=== PATIENT | female | born 1995 | race African-American/Black ===

== ENCOUNTER 2019-06-22 17:32 | Emergency (ER) | payer OTHER ==
[~2019-06-22] VITALS: Ht 157.5 cm; Wt 68.9 kg
[2019-06-22 18:18] VITALS: BP 104/61
[2019-06-22] MEDS ORDERED: guaiFENesin/CODEINE 100mg/10mg 5 ML LIQUID PO STA (18:29)
[2019-06-22] MEDS ORDERED: ONDANSETRON ODT 4 MG TAB.RAPDIS. PO ONE (18:30)
[2019-06-22] MEDS ORDERED: BENZ100C PO (18:48)
[2019-06-22] MEDS ORDERED: PRED50TA PO (18:48)
[2019-06-22] MEDS ORDERED: PROM25TA10 PO (18:48)
--- NOTE | 2019-06-22 18:48 | PHYS DOC ---
Adult General Chief Complaint Chief Complaint: SORE THROAT HPI HPI Patient is a 24 year old female with no significant medical history who presents to the ED today complaining of cough productive in nature, sore throat, chest pain, symptoms began a week ago. Denies any exacerbating or relieving factors. Unable to describe the chest pain. Also complaining of generalized abdominal pain. Denies any chance she is . She states her whole body hurts. She is also complaining of bilateral ear pain. She rates most of her pain is 8 out of 10. Denies being on any control. Denies any personal family history of DVTs or PEs. Denies any recent hospitalization or long air or car ca r rides. Review of Systems Review of Systems Constitutional: Denies fever or chills [] Eyes: Denies change in visual acuity, redness, or eye pain [] HENT: Reports sore throat, bilateral ear pain, denies nasal congestion Respiratory: Reports cough, denies shortness of breath [] Cardiovascular: Reports chest pain GI: Reports generalized abdominal pain, vomiting, denies bloody stools or diarrhea [] : Denies dysuria or hematuria [] Musculoskeletal: Denies back pain or joint pain [] Integument: Denies rash or skin lesions [] Neurologic: Denies headache, focal weakness or sensory changes [] All other systems were reviewed and found to be within normal limits, except as documented in this note. Current Medications Current Medications Current Medications Medications (Trade) Dose Ordered Sig/Mariano Start Time Stop Time Status Last Admin Dose Admin Guaifenesin/ Codeine Phosphate (Robitussin Ac) 5 ml 1X STAT 06/22/19 18:29 06/22/19 18:30 UNV Ondansetron HCl (Zofran Odt) 4 mg 1X ONCE 06/22/19 18:30 06/22/19 18:31 UNV Physical Exam Physical Exam Constitutional: Well developed, well nourished, no acute distress, non-toxic appearance. [] HENT: Normocephalic, atraumatic, bilateral external ears normal, oropharynx moist, no oral exudates, nose normal. Bilateral TM are mildly injected. Eyes: PERRLA, EOMI, conjunctiva normal, no discharge. [] Neck: Normal range of motion, no tenderness, supple, no stridor. [] Cardiovascular:Heart rate regular rhythm, no murmur [] Lungs & Thorax: Bilateral breath sounds clear to auscultation [] Abdomen: Bowel sounds normal, soft, no tenderness, no masses, no pulsatile masses. [] Skin: Warm, dry, no erythema, no rash. [] Back: No tenderness, no CVA tenderness. [] Extremities: No tenderness, no cyanosis, no clubbing, ROM intact, no edema. [] Neurologic: Alert and oriented X 3, normal motor function, normal sensory function, no focal deficits noted. [] Psychologic: Affect normal, judgement normal, mood normal. [] EKG EKG [] Radiology/Procedures Radiology/Procedures [] Course & Med Decision Making Course & Med Decision Making Pertinent Labs and Imaging studies reviewed. (See chart for details) This is a 24-year-old female patient presenting to the ED today with acute pharyngitis, cough, body aches, chest pain, otitis media, abdominal pain. Discharged on amoxicillin, promethazine, prednisone, Delsym, follow-up with PCP in one week. Dragon Disclaimer Dragon Disclaimer This electronic medical record was generated, in whole or in part, using a voice recognition dictation system. Departure Departure Impression: Primary Impression: Cough Additional Impressions: Acute pharyngitis Chest pain Abdominal pain Vomiting Disposition: 01 HOME, SELF-CARE Condition: STABLE Referrals: NO PCP (PCP) follow up with your doctor in one week Patient Instructions: Abdominal Pain (Nonspecific), Otitis Media, Adult, Viral Pharyngitis Additional Instructions: You were evaluated in the emergency room for multiple complaints. We put you on medications, take them as prescribed. Ensure you complete your antibiotics. Follow-up with your doctor in 1-2 weeks. Scripts Prednisone (PREDNISONE) 50 Mg Tablet 1 TAB PO DAILY, #5 TAB Prov: MUTUNGA,SANDRA MEAT STOCK CLERK 06/22/19 Benzonatate (TESSALON PERLE) 100 Mg Capsule 1 CAP PO TID, #30 CAP Prov: MUTUNGA,SANDRA MEAT STOCK CLERK 06/22/19 Promethazine Hcl (PROMETHAZINE HCL) 25 Mg Tablet 1 TAB PO PRN Q6HRS, #20 TAB Prov: MUTUNGA,SANDRA MEAT STOCK CLERK 06/22/19 Problem Qualifiers Additional Impressions: Acute pharyngitis Pharyngitis/tonsillitis etiology: unspecified etiology Qualified Codes: J02.9 - Acute pharyngitis, unspecified Chest pain Chest pain type: unspecified Qualified Codes: R07.9 - Chest pain, unspecified Abdominal pain Abdominal location: generalized Qualified Codes: R10.84 - Generalized abdominal pain Vomiting Vomiting type: unspecified Vomiting Intractability: non-intractable Nausea presence: without nausea Qualified Codes: R11.11 - Vomiting without nausea SANDRA AVILES APRN Jun 22, 2019 18:48
== END 2019-06-22 19:00 | disposition home or self-care (01) ==
LOC: ER 17:32
DX: J02.9 Acute pharyngitis, unspecified (principal); R10.84 Generalized abdominal pain; R11.11 Vomiting without nausea; R07.89 Other chest pain; H92.03 Otalgia, bilateral
CPT/HCPCS: 99283; Q0162

== ENCOUNTER 2019-06-30 22:31 | Emergency (ER) | payer OTHER ==
[~2019-06-30] VITALS: Ht 165.1 cm; Wt 68.9 kg
[~2019-06-30 22:31] MED LIST: BENZ100C PO; PRED50TA PO; PROM25TA10 PO
[2019-06-30] MEDS ORDERED: IV NORMAL SALINE 1000ML BAG 1,000 ML IV ONE (23:15)
[2019-06-30 23:19] LABS: BASO % 1 % (0-3); EOS # 0.1 x10^3/uL (0.0-0.7); EOS % 2 % (0-3); HEMATOCRIT 39.8 % (36.0-47.0); HEMOGLOBIN 13.3 g/dL (12.0-15.5); LYMPH # 2.3 x10^3/uL (1.0-4.8); LYMPH % 49 % (24-48); MEAN CORPUSCULAR HEMOGLOBIN 29 pg (25-35); MEAN CORPUSCULAR HGB CONC 33 g/dL (31-37); MEAN CORPUSCULAR VOLUME 86 fL (79-100); MONO # 0.3 x10^3/uL (0.0-1.1); MONO % 7 % (0-9); NEUT % 42 % (31-73); PLATELET COUNT 214 x10^3/uL (140-400); RED BLOOD COUNT 4.65 x10^6/uL (3.50-5.40); RED CELL DISTRIBUTION WIDTH 13.6 % (11.5-14.5); WHITE BLOOD COUNT 4.7 x10^3/uL (4.0-11.0)
[2019-06-30] MEDS ORDERED: ONDANSETRON PF 4 MG/2 ML VIAL. IV ONE (23:30)
[2019-06-30] MEDS ORDERED: diphenhydrAMINE 50 MG/ML VIAL IVP ONE (23:30)
[2019-06-30] MEDS ORDERED: KETOROLAC 15 MG/ML VIAL. IV ONE (23:30)
[2019-06-30] MEDS ORDERED: DEXAMETHASONE SOD PHOS 20 MG/5 ML VIAL. IV ONE (23:30)
[2019-06-30 23:37] LABS: CALCIUM 9.1 mg/dL (8.5-10.1); CREATININE 0.9 mg/dL (0.6-1.0); GFR 93.9; POTASSIUM 3.4 mmol/L (3.5-5.1)
[2019-06-30 23:42] LABS: ALBUMIN 3.9 g/dL (3.4-5.0); ALBUMIN/GLOBULIN RATIO 1.1 (1.0-1.7); MAGNESIUM 1.9 mg/dL (1.8-2.4); TOTAL BILIRUBIN 0.3 mg/dL (0.2-1.0); TOTAL PROTEIN 7.4 g/dL (6.4-8.2)
[2019-06-30 23:45] LABS: CREATINE KINASE 97 U/L (26-192)
--- NOTE | 2019-07-01 00:02 | RAD ---
CT brain without contrast. HISTORY: Headache, altered mental status CT scan of brain was done without contrast. There is no intracranial hemorrhage or subdural hematoma. Ventricles are normal in size. There is no mass or shift of the midline. Sinuses are clear. IMPRESSION: 1. No intracranial hemorrhage or acute finding noted. Electronically signed by: John Owens MD (06/30/2019 11:59 PM) [facility]
[2019-07-01] MEDS ORDERED: BUTALB/APAP/CAFEIN 50/325/40MG TABLET. PO ONE (01:00)
--- NOTE | 2019-07-01 01:43 | RAD ---
Study: PORTABLE CHEST 1V Indication: Dyspnea Comparison: None Findings: Unremarkable cardiovascular mediastinal silhouette and hilar structures. No lobar consolidation, pleural effusion or pneumothorax. The osseous structures and visualized upper abdomen are without acute abnormality. Impression: Unremarkable radiographic appearance of the chest. Electronically signed by: BENEDICT LINK MD (07/01/2019 1:40 AM) [facility]
[2019-07-01] MEDS ORDERED: DIPH25CA58 PO (03:24)
[2019-07-01] MEDS ORDERED: BUTA1TAB23 PO (03:24)
[2019-07-01] MEDS ORDERED: PRED20TA PO (03:24)
--- NOTE | 2019-07-01 03:24 | PHYS DOC ---
Past Medical History Past Medical History: No Pertinent History, Asthma Past Surgical History: Tonsillectomy Alcohol Use: Rarely Drug Use: None Adult General Chief Complaint Chief Complaint: ALTERED MENTAL STATUS HPI HPI Patient is a 24 year old [f__sex] who presents with [] Review of Systems Review of Systems Constitutional: Denies fever or chills [] Eyes: Denies change in visual acuity, redness, or eye pain [] HENT: Denies nasal congestion or sore throat [] Respiratory: Denies cough or shortness of breath [] Cardiovascular: No additional information not addressed in HPI [] GI: Denies abdominal pain, nausea, vomiting, bloody stools or diarrhea [] : Denies dysuria or hematuria [] Musculoskeletal: Denies back pain or joint pain [] Integument: Denies rash or skin lesions [] Neurologic: Denies headache, focal weakness or sensory changes [] Endocrine: Denies polyuria or polydipsia [] All other systems were reviewed and found to be within normal limits, except as documented in this note. Current Medications Current Medications Current Medications Medications (Trade) Dose Ordered Sig/Mariano Start Time Stop Time Status Last Admin Dose Admin Acetaminophen/ Butalbital/ Caffeine (Fioricet) 1 tab 1X ONCE 07/01/19 01:00 07/01/19 01:01 DC 07/01/19 02:56 1 TAB Dexamethasone Sodium Phosphate (Decadron) 10 mg 1X ONCE 06/30/19 23:30 06/30/19 23:31 DC 06/30/19 23:33 10 MG Diphenhydramine HCl (Benadryl) 50 mg 1X ONCE 06/30/19 23:30 06/30/19 23:31 DC 06/30/19 23:33 50 MG Ketorolac Tromethamine (Toradol 15mg Vial) 15 mg 1X ONCE 06/30/19 23:30 06/30/19 23:31 DC 06/30/19 23:33 15 MG Ondansetron HCl (Zofran) 4 mg 1X ONCE 06/30/19 23:30 06/30/19 23:31 DC 06/30/19 23:33 4 MG Sodium Chloride 1,000 ml @ 1,000 mls/hr 1X ONCE 06/30/19 23:15 07/01/19 00:14 DC 06/30/19 23:42 1,000 MLS/HR Allergies Allergies Allergies Coded Allergies Type Severity Reaction Last Updated Verified No Known Drug Allergies 06/22/19 No Physical Exam Physical Exam Constitutional: Well developed, well nourished, no acute distress, non-toxic appearance. [] HENT: Normocephalic, atraumatic, bilateral external ears normal, oropharynx mo ist, no oral exudates, nose normal. [] Eyes: PERRLA, EOMI, conjunctiva normal, no discharge. [] Neck: Normal range of motion, no tenderness, supple, no stridor. [] Cardiovascular:Heart rate regular rhythm, no murmur [] Lungs & Thorax: Bilateral breath sounds clear to auscultation [] Abdomen: Bowel sounds normal, soft, no tenderness, no masses, no pulsatile masses. [] Skin: Warm, dry, no erythema, no rash. [] Back: No tenderness, no CVA tenderness. [] Extremities: No tenderness, no cyanosis, no clubbing, ROM intact, no edema. [] Neurologic: Alert and oriented X 3, normal motor function, normal sensory function, no focal deficits noted. [] Psychologic: Affect normal, judgement normal, mood normal. [] Current Patient Data Vital Signs Vital Signs Date Time Temp Pulse Resp B/P (MAP) Pulse Ox O2 Delivery O2 Flow Rate FiO2 07/01/19 03:29 99 06/30/19 23:41 74 16 06/30/19 22:35 98.4 146/76 (99) Room Air 98.4 Lab Values Laboratory Tests Test 06/30/19 22:45 White Blood Count 4.7 x10^3/uL (4.0-11.0) Red Blood Count 4.65 x10^6/uL (3.50-5.40) Hemoglobin 13.3 g/dL (12.0-15.5) Hematocrit 39.8 % (36.0-47.0) Mean Corpuscular Volume 86 fL (79-100) Mean Corpuscular Hemoglobin 29 pg (25-35) Mean Corpuscular Hemoglobin Concent 33 g/dL (31-37) Red Cell Distribution Width 13.6 % (11.5-14.5) Platelet Count 214 x10^3/uL (140-400) Neutrophils (%) (Auto) 42 % (31-73) Lymphocytes (%) (Auto) 49 % (24-48) H Monocytes (%) (Auto) 7 % (0-9) Eosinophils (%) (Auto) 2 % (0-3) Basophils (%) (Auto) 1 % (0-3) Neutrophils # (Auto) 2.0 x10^3/uL (1.8-7.7) Lymphocytes # (Auto) 2.3 x10^3/uL (1.0-4.8) Monocytes # (Auto) 0.3 x10^3/uL (0.0-1.1) Eosinophils # (Auto) 0.1 x10^3/uL (0.0-0.7) Basophils # (Auto) 0.0 x10^3/uL (0.0-0.2) Sodium Level 143 mmol/L (136-145) Potassium Level 3.4 mmol/L (3.5-5.1) L Chloride Level 104 mmol/L (98-107) Carbon Dioxide Level 28 mmol/L (21-32) Anion Gap 11 (6-14) Blood Urea Nitrogen 8 mg/dL (7-20) Creatinine 0.9 mg/dL (0.6-1.0) Estimated GFR (Cockcroft-Gault) 93.9 BUN/Creatinine Ratio 9 (6-20) Glucose Level 84 mg/dL (70-99) Calcium Level 9.1 mg/dL (8.5-10.1) Magnesium Level 1.9 mg/dL (1.8-2.4) Total Bilirubin 0.3 mg/dL (0.2-1.0) Aspartate Amino Transferase (AST) 8 U/L (15-37) L Alanine Aminotransferase (ALT) 15 U/L (14-59) Alkaline Phosphatase 56 U/L (46-116) Creatine Kinase 97 U/L (26-192) Creatine Kinase MB (Mass) < 0.5 ng/mL (0.0-3.6) Creatine Kinase MB Relative Index % (0-4) Troponin I Quantitative < 0.017 ng/mL (0.000-0.055) Total Protein 7.4 g/dL (6.4-8.2) Albumin 3.9 g/dL (3.4-5.0) Albumin/Globulin Ratio 1.1 (1.0-1.7) Serum Test, Qualitative Negative (NEG) Ethyl Alcohol Level < 10 mg/dL (0-10) Laboratory Tests 06/30/19 22:45 Laboratory Tests 06/30/19 22:45 EKG EKG @2318 NSR at 67bpm, NO ST elevation Radiology/Procedures Radiology/Procedures [] Course & Med Decision Making Course & Med Decision Making Pertinent Labs and Imaging studies reviewed. (See chart for details) [] Dragon Disclaimer Dragon Disclaimer This electronic medical record was generated, in whole or in part, using a voice recognition dictation system. Departure Departure Impression: Primary Impression: Headache Disposition: HOME, SELF-CARE Condition: STABLE Referrals: NO PCP (PCP) YONY VOGEL MD Patient Instructions: Headache, FAQs Scripts Diphenhydramine Hcl (BENADRYL) 25 Mg Capsule 1 CAP PO Q6HRS PRN for SWELLING, #20 CAP Prov: CRISTY VENCES DO 07/01/19 Prednisone (PREDNISONE) 20 Mg Tablet 2 TAB PO DAILY, #8 TAB Prov: CRISTY VENCES DO 07/01/19 Butalb/Acetaminophen/Caffeine (TASIFZ-IHBEOJAP-ELHU 50-325-40) 1 Each Tablet 1 EACH PO Q6HRS PRN for HEADACHE, #10 TAB Prov: CRISTY VENCES DO 07/01/19 Problem Qualifiers Primary Impression: Headache Headache type: unspecified Headache chronicity pattern: acute headache Intractability: not intractable Qualified Codes: R51 - Headache CRISTY VENCES DO Jul 01, 2019 03:24
[2019-07-01 03:29] VITALS: BP 115/74
[2019-07-01 03:30] LABS: PREG TEST PT QUAL NEGATIVE (NEG)
--- NOTE | 2019-07-01 07:41 | EKG ---
[facility] [address] [place] [address] Test Date: 2019-06-30 Test Time: 23:18:44 Pat Name: SAMSON OCASIO Department: Room: Gender: F Retail Security Professional: : 1995 Requested By: CRISTY VENCES Order Number: [id number] Reading MD: Measurements Intervals [place] Rate: 67 P: 0 MD: 122 QRS: 49 QRSD: 78 T: 51 QT: 394 QTc: 419 Interpretive Statements SINUS RHYTHM NON SPECIFIC ST-T ABNORMALITY (ELEVATION) OTHERWISE NORMAL ECG No previous ECG available for comparison
== END 2019-07-01 04:15 | disposition home or self-care (01) ==
LOC: ER 22:31
DX: R51 Headache (principal); R41.82 Altered mental status, unspecified; R06.00 Dyspnea, unspecified; J45.909 Unspecified asthma, uncomplicated
CPT/HCPCS: 36415; 70450; 71045; 80053; 82553; 83735; 84484; 84703; 85025; 93005; 96361; 96374; 96375; 99285; G0480; J1100; J1200; J1885; J2405; J7030

== ENCOUNTER 2019-09-21 18:19 | Emergency (ER) | payer MEDICAID, OTHER ==
[~2019-09-21] VITALS: Ht 157.5 cm; Wt 62.1 kg
[~2019-09-21 18:19] MED LIST changes: +BUTA1TAB23 PO; +DIPH25CA58 PO; +PRED20TA PO
[2019-09-21] MEDS ORDERED: IV NORMAL SALINE 1000ML BAG 1,000 ML IV SCH (18:45)
[2019-09-21 18:54] LABS: BILIRUBIN,URINE NEGATIVE (NEG); CLARITY,URINE CLEAR; COLOR,URINE YELLOW; NITRITE,URINE NEGATIVE (NEG); PROTEIN,URINE NEGATIVE (NEG-TRACE)
--- NOTE | 2019-09-21 18:55 | PHYS DOC ---
Past Medical History Past Medical History: No Pertinent History, Asthma Past Surgical History: Tonsillectomy Alcohol Use: Rarely Drug Use: None Adult General Chief Complaint Chief Complaint: ABDOMINAL PAIN IN HPI HPI Patient is a 24 year old female who presents with complaining of pelvic pain in . Patient is at 5 weeks of gestation with LMP of August 15, 2019 with complaining of pelvic pain. Patient complaining of constant suprapubic and bilateral lower abdominal pain since yesterday as a sharp pain with radiation to her back and rated her pain 9 or 10 over 10. Patient complaining of nausea for several days without new changes. Patient denies urinary symptoms. Patient states she did not have appetite and did not drink or eat like her usual since yesterday. Patient states she had positive test at doctor office 3 days ago but doesn't want to keep the baby. Patient states she has positive blood type and denies fever and chills, diarrhea and constipation. Patient states she has some white discharge and yesterday had one episode of brown discharge. Review of Systems Review of Systems Constitutional: Denies fever or chills [] Eyes: Denies change in visual acuity, redness, or eye pain [] HENT: Denies nasal congestion or sore throat [] Respiratory: Denies cough or shortness of breath [] Cardiovascular: No additional information not addressed in HPI [] GI: Reports abdominal pain, nausea, denies vomiting, bloody stools or diarrhea [] : Denies dysuria or hematuria [] Musculoskeletal: Denies back pain or joint pain [] Integument: Denies rash or skin lesions [] Neurologic: Denies headache, focal weakness or sensory changes [] Endocrine: Denies polyuria or polydipsia [] All other systems were reviewed and found to be within normal limits, except as documented in this note. Current Medications Current Medications Current Medications Medications (Trade) Dose Ordered Sig/Mariano Start Time Stop Time Status Last Admin Dose Admin Fentanyl Citrate (Fentanyl 2ml Vial) 50 mcg 1X ONCE 09/21/19 19:15 09/21/19 19:16 DC 09/21/19 19:23 50 MCG Ondansetron HCl (Zofran) 4 mg 1X ONCE 09/21/19 19:15 09/21/19 19:16 DC 09/21/19 19:23 4 MG Sodium Chloride 1,000 ml @ 1,000 mls/hr Q1H 09/21/19 18:45 09/21/19 19:44 DC 09/21/19 19:23 1,000 MLS/HR Allergies Allergies Allergies Coded Allergies Type Severity Reaction Last Updated Verified No Known Drug Allergies 06/22/19 No Physical Exam Physical Exam Constitutional: Well developed, well nourished, mild distress, non-toxic appearance. [] HENT: Normocephalic, atraumatic, bilateral external ears normal, oropharynx moist, no oral exudates, nose normal. [] Eyes: PERRLA, EOMI, conjunctiva normal, no discharge. [] Neck: Normal range of motion, no tenderness, supple, no stridor. [] Cardiovascular:Heart rate regular rhythm, no murmur [] Lungs & Thorax: Bilateral breath sounds clear to auscultation [] Abdomen: Bowel sounds normal, soft, no tenderness, no masses, no pulsatile masses. Vaginal exam with present of superintendent meter tests showed normal external vagina, no vaginal bleeding, mild to moderate amount of white vaginal discharge, no adnexal tenderness or palpated masses. Skin: Warm, dry, no erythema, no rash. [] Back: No tenderness, no CVA tenderness. [] Extremities: No tenderness, no cyanosis, no clubbing, ROM intact, no edema. [] Neurologic: Alert and oriented X 3, normal motor function, normal sensory function, no focal deficits noted. [] Psychologic: Affect normal, judgement normal, mood normal. [] Current Patient Data Vital Signs Vital Signs Date Time Temp Pulse Resp B/P (MAP) Pulse Ox O2 Delivery O2 Flow Rate FiO2 09/21/19 19:23 16 98 Room Air 09/21/19 18:31 98.7 88 113/53 (73) 98.7 Lab Values Laboratory Tests Test 09/21/19 18:36 09/21/19 18:48 09/21/19 19:22 Urine Collection Type Unknown Urine Color Yellow Urine Clarity Clear Urine pH 6.0 Urine Specific [place] >=1.030 Urine Protein Negative mg/dL (NEG-TRACE) Urine Glucose (UA) Negative mg/dL (NEG) Urine Ketones (Stick) 40 mg/dL (NEG) Urine Blood Negative (NEG) Urine Nitrite Negative (NEG) Urine Bilirubin Negative (NEG) Urine Urobilinogen Dipstick 1.0 mg/dL (0.2 mg/dL) Urine Leukocyte Esterase Negative (NEG) Urine RBC 3-5 /HPF (0-2) Urine WBC Occ /HPF (0-4) Urine Squamous Epithelial Cells Occ /LPF Urine Bacteria Few /HPF (0-FEW) Urine Mucus Marked /LPF POC Urine HCG, Qualitative Hcg positive (Negative) White Blood Count 5.5 x10^3/uL (4.0-11.0) Red Blood Count 4.24 x10^6/uL (3.50-5.40) Hemoglobin 12.5 g/dL (12.0-15.5) Hematocrit 37.5 % (36.0-47.0) Mean Corpuscular Volume 88 fL (79-100) Mean Corpuscular Hemoglobin 29 pg (25-35) Mean Corpuscular Hemoglobin Concent 33 g/dL (31-37) Red Cell Distribution Width 13.6 % (11.5-14.5) Platelet Count 228 x10^3/uL (140-400) Neutrophils (%) (Auto) 64 % (31-73) Lymphocytes (%) (Auto) 29 % (24-48) Monocytes (%) (Auto) 5 % (0-9) Eosinophils (%) (Auto) 1 % (0-3) Basophils (%) (Auto) 1 % (0-3) Neutrophils # (Auto) 3.5 x10^3/uL (1.8-7.7) Lymphocytes # (Auto) 1.6 x10^3/uL (1.0-4.8) Monocytes # (Auto) 0.3 x10^3/uL (0.0-1.1) Eosinophils # (Auto) 0.0 x10^3/uL (0.0-0.7) Basophils # (Auto) 0.0 x10^3/uL (0.0-0.2) Maternal Serum HCG Beta Subunit 44356 mIU/mL (0-5) H Sodium Level 137 mmol/L (136-145) Potassium Level 3.6 mmol/L (3.5-5.1) Chloride Level 101 mmol/L (98-107) Carbon Dioxide Level 27 mmol/L (21-32) Anion Gap 9 (6-14) Blood Urea Nitrogen 7 mg/dL (7-20) Creatinine 0.8 mg/dL (0.6-1.0) Estimated GFR (Cockcroft-Gault) 107.6 Glucose Level 89 mg/dL (70-99) Calcium Level 8.9 mg/dL (8.5-10.1) Laboratory Tests 09/21/19 19:22 Laboratory Tests 09/21/19 19:22 EKG EKG [] Radiology/Procedures Radiology/Procedures [][facility] [address] [place] [address] IMAGING REPORT Signed PATIENT: SAMSON OCASIO ACCOUNT: [id number] : 1995 LOCATION: ER AGE: 24 SEX: F EXAM STATUS: REG ER ORD. PHYSICIAN: DREW STRANGE MD REASON: pelvic pain, 5 weeks PROCEDURE: OB <14 WKS W/TV Exam: Ultrasound OB less than 14 weeks Indication: Pelvic pain Technique: Real-time grayscale and color Doppler images of the pelvis were obtained by the department microcomputer support specialist. Comparisons: None FINDINGS: Uterus measures 8.7 x 5.7 x 3.6 cm. Within the endometrium there is a gestational sac with yolk sac. No pole identified. Small perigestational bleed is noted. Right ovary measures 3.3 x 2.3 x 1.9 cm. Left ovary measures 3.4 x 1.9 x 1.5 cm. No free fluid. IMPRESSION: Gestational sac with internal yolk sac. No pole is identified. Findings likely relate to either an early IUP or failed IUP. Recommend correlation with serial beta hCG measurements and short-term follow-up ultrasound. Electronically signed by: Antoine Man MD (09/21/2019 7:37 PM) [facility] DICTATED and SIGNED BY: ANTOINE MAN MD DATE: 09/21/191936 Course & Med Decision Making Course & Med Decision Making Pertinent Labs and Imaging studies reviewed. (See chart for details) Evaluation of patient in ER showed 24-year-old female patient at 5 weeks of gestation with complaining of abdominal pain and nausea. Patient had unremarkable physical exam and labs. HCG level was 17,000. OB ultrasound showed intrauterine without heart most likely because of early . Patient mentioned several times that she doesn't want to keep the baby. She was advised to follow-up with her TRANSIT PROOF MACHINE OPERATOR in 2 days for repeat hCG level. Patient felt better with IV fluid, Zofran and fentanyl was given in ER. I've spoken with the patient and/or caregivers. I've explained the patient's condition, diagnosis and treatment plan based on information available to me at this time. I've answered the patient's and/or caregivers questions and addressed any concerns. The patient and/or caregivers have a good understanding the patient's diagnosis, condition and treatment plan as can be expected at this point. Vital signs have been stabilized. The patient's condition is stable for discharge from the emergency department. The patient will pursue further outpatient evaluation with her primary care provider or other designated consulting physician as outlined in the discharge instructions. Patient and/or caregivers are agreeable to this plan of care and follow-up instructions have been explained in detail. The patient and/or caregivers have received these instructions in written format and expressed understanding of these discharge instructions. The patient and her caregivers are aware that if any significant change in condition or worsening of symptoms should prompt him to immediately return to this of the closest emergency department. If an emergent department is not readily available I would encourage him to call 911. Dragon Disclaimer Dragon Disclaimer This electronic medical record was generated, in whole or in part, using a voice recognition dictation system. Departure Departure Impression: Primary Impression: Abdominal pain during Additional Impression: Nausea Disposition: HOME, SELF-CARE (at 2018) Condition: IMPROVED Referrals: MANUEL VELASQUEZ MD (PCP) Patient Instructions: Abdominal Pain During , Nausea, Adult Additional Instructions: Drink plenty of liquids Follow-up with your TRANSIT PROOF MACHINE OPERATOR physician in 2 days for repeat the blood tests, HCG quantitative Return to ER if not getting better Scripts Ondansetron Hcl (ZOFRAN) 4 Mg Tablet 1 TAB PO PRN Q6-8HRS for nausea, #12 TAB Prov: DREW STRANGE MD 09/21/19 Hydrocodone/Apap 5-325 (NORCO 5-325 TABLET) 1 Each Tablet 1 TAB PO PRN Q6HRS PRN for PAIN, #10 TAB 0 Refills Prov: DREW STRANGE MD 09/21/19 Problem Qualifiers Primary Impression: Abdominal pain during Trimester: first trimester Qualified Codes: O26.891 - Other specified related conditions, first trimester; R10.9 - Unspecified abdominal pain DREW STRANGE MD Sep 21, 2019 18:55
[2019-09-21 19:03] LABS: BACTERIA,URINE FEW /HPF (0-FEW); SQUAMOUS EPITHELIAL CELL,UR OCC /LPF; WBC,URINE OCC /HPF (0-4)
[2019-09-21] MEDS ORDERED: fentaNYL PF VIAL 100 MCG/2 ML VIAL IVP ONE (19:15)
[2019-09-21] MEDS ORDERED: ONDANSETRON PF 4 MG/2 ML VIAL. IV ONE (19:15)
--- NOTE | 2019-09-21 19:40 | RAD ---
Exam: Ultrasound OB less than 14 weeks Indication: Pelvic pain Technique: Real-time grayscale and color Doppler images of the pelvis were obtained by the department collections clerk. Comparisons: None FINDINGS: Uterus measures 8.7 x 5.7 x 3.6 cm. Within the endometrium there is a gestational sac with yolk sac. No pole identified. Small perigestational bleed is noted. Right ovary measures 3.3 x 2.3 x 1.9 cm. Left ovary measures 3.4 x 1.9 x 1.5 cm. No free fluid. IMPRESSION: Gestational sac with internal yolk sac. No pole is identified. Findings likely relate to either an early IUP or failed IUP. Recommend correlation with serial beta hCG measurements and short-term follow-up ultrasound. Electronically signed by: Antoine Aguirre MD (09/21/2019 7:37 PM) [facility]
[2019-09-21 19:43] LABS: BASO % 1 % (0-3); EOS % 1 % (0-3); HEMATOCRIT 37.5 % (36.0-47.0); HEMOGLOBIN 12.5 g/dL (12.0-15.5); LYMPH # 1.6 x10^3/uL (1.0-4.8); LYMPH % 29 % (24-48); MEAN CORPUSCULAR HEMOGLOBIN 29 pg (25-35); MEAN CORPUSCULAR HGB CONC 33 g/dL (31-37); MEAN CORPUSCULAR VOLUME 88 fL (79-100); MONO # 0.3 x10^3/uL (0.0-1.1); MONO % 5 % (0-9); NEUT # 3.5 x10^3/uL (1.8-7.7); NEUT % 64 % (31-73); PLATELET COUNT 228 x10^3/uL (140-400); RED BLOOD COUNT 4.24 x10^6/uL (3.50-5.40); RED CELL DISTRIBUTION WIDTH 13.6 % (11.5-14.5); WHITE BLOOD COUNT 5.5 x10^3/uL (4.0-11.0)
[2019-09-21 19:46] LABS: CALCIUM 8.9 mg/dL (8.5-10.1); CREATININE 0.8 mg/dL (0.6-1.0); GFR 107.6; POTASSIUM 3.6 mmol/L (3.5-5.1)
[2019-09-21] MEDS ORDERED: ONDA4TAB7 PO (20:20)
[2019-09-21] MEDS ORDERED: HYDR-3164 PO (20:20)
[2019-09-21 20:45] VITALS: BP 120/62
== END 2019-09-21 20:45 | disposition home or self-care (01) ==
LOC: ER 18:19
DX: O26.891 Other specified pregnancy related conditions, first trimester (principal); R10.31 Right lower quadrant pain; R10.32 Left lower quadrant pain; R10.2 Pelvic and perineal pain; R11.0 Nausea; O99.511 Diseases of the respiratory system complicating pregnancy, first trimester; J45.909 Unspecified asthma, uncomplicated; Z3A.01 Less than 8 weeks gestation of pregnancy
CPT/HCPCS: 36415; 76801; 76817; 80048; 81001; 81025; 84702; 85025; 96374; 96375; 99285; J2405; J3010; J7030

== ENCOUNTER 2020-03-25 18:26 | Emergency (ER) | payer OTHER, MEDICAID ==
[~2020-03-25] VITALS: Ht 157.5 cm; Wt 62.7 kg
[~2020-03-25 18:26] MED LIST changes: +HYDR-3164 PO; +ONDA4TAB7 PO
[2020-03-25 18:50] VITALS: BP 129/75
[2020-03-25] MEDS ORDERED: HYDR-3164 PO (18:59)
--- NOTE | 2020-03-25 18:59 | PHYS DOC ---
Past Medical History Past Medical History: Asthma Past Surgical History: Tonsillectomy Smoking Status: Never Smoker Alcohol Use: Rarely Drug Use: None General Adult EDM: Chief Complaint: DENTAL PROBLEM HPI: HPI: Patient is a 25 year old female who presents with left upper tooth and jaw pain that radiates to the ear since Thursday. She states she has been taking Tylenol but it is not helping. She has a Dental appointment Thursday at [facility]. Patient rates her pain at a 10/10. Review of Systems: Review of Systems: HENT: Denies nasal congestion or sore throat. Dental and facial pain [] Heart Score: Risk Factors: Risk Factors: DM, Current or recent (<one month) smoker, HTN, HLP, family history of CAD, obesity. Risk Scores: Score 0 - 3: 2.5% MACE over next 6 weeks - Discharge Home Score 4 - 6: 20.3% MACE over next 6 weeks - Admit for Clinical Observation Score 7 - 10: 72.7% MACE over next 6 weeks - Early Invasive Strategies Allergies: Allergies: Allergies Coded Allergies Type Severity Reaction Last Updated Verified No Known Drug Allergies 06/22/19 No Physical Exam: PE: Constitutional: Well developed, well nourished, no acute distress, non-toxic appearance. [] HENT: Normocephalic, atraumatic, bilateral external ears normal, oropharynx moist, no oral exudates, nose normal. Left upper back wisdom tooth impaction. [] Eyes: PERRLA, EOMI, conjunctiva normal, no discharge. [] Neck: Normal range of motion, no tenderness, supple, no stridor. [] Cardiovascular:Heart rate regular rhythm, no murmur [] Lungs & Thorax: Bilateral breath sounds clear to auscultation [] Abdomen: Bowel sounds normal, soft, no tenderness, no masses, no pulsatile masses. [] Skin: Warm, dry, no erythema, no rash. [] Back: No tenderness, no CVA tenderness. [] Extremities: No tenderness, no cyanosis, no clubbing, ROM intact, no edema. [] Neurologic: Alert and oriented X 3, normal motor function, normal sensory function, no focal deficits noted. [] Psychologic: Affect normal, judgement normal, mood normal. [] EKG: EKG: [] Radiology/Procedures: Radiology/Procedures: [] Course & Med Decision Making: Course & Med Decision Making Pertinent Labs and Imaging studies reviewed. (See chart for details) No dental caries with patient does have a left upper wisdom tooth that looks like is trying to come through is [place] through and diagonally. It may be impacted. Bilateral tympanic's are pearly white and there is no infection. She is afebrile. No abscess is seen or felt. No cellulitis on the face. No gumline redness or bleeding. No broken teeth. Patient denies dizziness, fever, nausea, vomiting, abdominal pain, chest pain, shortness of air, recent illness, nasal congestion. She states it hurts to chew food or open her mouth wide. No trismus. Throat is pink without exudates or swelling. [] Dragon Disclaimer: Dragon Disclaimer: This electronic medical record was generated, in whole or in part, using a voice recognition dictation system. Departure Departure Impression: Primary Impression: Pain, dental Disposition: 01 HOME, SELF-CARE Condition: STABLE Referrals: MANUEL VELASQUEZ MD (PCP) Patient Instructions: Dental Pain, [id number] Additional Instructions: Follow-up with a dentist as scheduled. Take medication as prescribed and with food. Do not drink alcohol or drive or operate any heavy machinery while taking this medication. Do not take more Tylenol with this medication but you may take ibuprofen with this medication. Scripts Hydrocodone/Apap 5-325 (NORCO 5-325 TABLET) 1 Each Tablet 1 TAB PO PRN Q6HRS PRN for PAIN, #10 TAB 0 Refills Prov: TALYA LACKEY APRN 03/25/20 TALYA LACKEY APRN March 25, 2020 18:59
== END 2020-03-25 19:02 | disposition home or self-care (01) ==
LOC: ER 18:26
DX: K08.89 Other specified disorders of teeth and supporting structures (principal); K01.1 Impacted teeth; J45.909 Unspecified asthma, uncomplicated
CPT/HCPCS: 99283

== ENCOUNTER 2020-12-09 10:36 | Emergency (ER) | payer MEDICAID, OTHER ==
[~2020-12-09] VITALS: Ht 157.5 cm; Wt 72.0 kg
[2020-12-09 10:40] VITALS: BP 142/89
--- NOTE | 2020-12-09 11:32 | PHYS DOC ---
Past Medical History Past Medical History: Anxiety, Asthma, Depression Past Surgical History: Tonsillectomy Past Surgical History D/C for miscarried Smoking Status: Never Smoker Alcohol Use: Rarely Drug Use: None, Marijuana (Occasionaly) General Adult EDM: Chief Complaint: ANXIETY/PANIC ATTACK HPI: HPI: Patient is a 25 year old female who presents with anxiety and panic attack. Patient reports she was fired from her job this morning at [employer], she then developed severe anxiety and did not feel safe to drive. Her mother drove her to the ED. She has a history of anxiety and depression for which she takes Seroquel, Celexa, and Ativan as needed. She did not have the Ativan with her this morning and so has not taken any as of yet. She says she sees a psychiatrist Dr. Kaye at the [facility]. She notes a sensation of chest heaviness, shortness of breath, racing heartbeat, and dizziness. She is tearful during exam. Reports symptoms similar to prior anxiety attacks. Review of Systems: Review of Systems: Constitutional: Denies fever or chills Eyes: Denies redness or eye pain HENT: Denies nasal congestion or sore throat Respiratory: Denies cough; notes some shortness of breath Cardiovascular: Reports rapid heartbeat and palpitations GI: Denies abdominal pain, nausea, or vomiting : Denies dysuria or hematuria Musculoskeletal: Denies back pain or joint pain Integument: Denies rash or skin lesions Neurologic: Denies headache, focal weakness or sensory changes Complete systems were reviewed and found to be within normal limits, except as documented in this note. Family History: Family History: Mother also has anxiety and depression. Grandmother had breast cancer. Allergies: Allergies: Allergies Coded Allergies Type Severity Reaction Last Updated Verified No Known Drug Allergies 06/22/19 No Physical Exam: PE: Constitutional: Well developed, well nourished, appears to be in distress, non- toxic appearance HENT: Normocephalic, atraumatic Eyes: Conjunctiva normal, no discharge Neck: Normal range of motion, no tenderness, supple Lungs & Thorax: Tachypneic, equal chest rise and fall Abdomen: Soft, no tenderness Skin: Warm, dry, no erythema, no rash Extremities: No tenderness, ROM intact, no edema Neurologic: Alert and oriented X 3, normal motor function, normal sensory function, no focal deficits noted Psychologic: Anxious appearing, judgment normal Current Patient Data: Vital Signs: Vital Signs Date Time Temp Pulse Resp B/P (MAP) Pulse Ox O2 Delivery O2 Flow Rate FiO2 12/09/20 10:40 98.7 89 16 142/89 (106) 96 Room Air 98.7 EKG: EKG: [] Radiology/Procedures: Radiology/Procedures: [] Course & Med Decision Making: Course & Med Decision Making Patient presented with anxiety and panic attack after being fired from her job this a.m. Her mother drove her to the ED. She normally takes Ativan to abort these episodes. She did not have the medication on her at the time which is why she presented to the ED. She was given a 2 mg dose p.o. and told to follow-up with her psychiatrist at the [facility]. Patient stable for discharge with outpatient follow-up with PCP/psychiatry. Di scussed findings and plan with patient, who acknowledges understanding and agreement. Demetrio Disclaimer: Demetrio Disclaimer: This electronic medical record was generated, in whole or in part, using a voice recognition dictation system. Departure Departure Impression: Primary Impression: Panic attack Disposition: 01 DC HOME SELF CARE/HOMELESS Condition: STABLE Referrals: MNAUEL VELASQUEZ MD (PCP) Patient Instructions: Anxiety and Panic Attacks, [id number] Additional Instructions: Take previously prescribed anxiety medication as directed. Follow closely with psychiatrist. CRISTY VENCES DO Dec 09, 2020 11:32
== END 2020-12-09 11:50 | disposition home or self-care (01) ==
LOC: ER 10:36
DX: F41.0 Panic disorder [episodic paroxysmal anxiety] (principal); F12.90 Cannabis use, unspecified, uncomplicated; F41.9 Anxiety disorder, unspecified; J45.909 Unspecified asthma, uncomplicated; F32.9 Major depressive disorder, single episode, unspecified; Z98.890 Other specified postprocedural states; Z90.89 Acquired absence of other organs
CPT/HCPCS: 99283

== ENCOUNTER 2021-03-29 13:56 | Emergency (ER) | payer MEDICAID ==
[~2021-03-29] VITALS: Ht 157.5 cm; Wt 70.0 kg
[2021-03-29 14:05] VITALS: BP 110/59
[2021-03-29] MEDS ORDERED: VENTOLIN HFA18 GM INH (15:06)
--- NOTE | 2021-03-29 15:09 | ED.ADGEN ---
Past Medical History Past Medical History: Anxiety, Asthma, Depression Past Surgical History: Tonsillectomy Smoking Status: Current Some Day Smoker Additional Information: "I SOMETIMES VAPE" Alcohol Use: Rarely Drug Use: None, Marijuana General Adult EDM: Chief Complaint: MULTIPLE COMPLAINTS HPI: HPI: Patient is a 26 year old AA female who presents emergency department with complaints of a sore throat for the last 2 days and a productive cough with green sputum. She states she is also been short of breath and experiencing chest tightness she denies any fever, headache, palpitations, chest pain, abdominal pain, nausea, vomiting, diarrhea, body aches, or loss of taste/smell. Patient reports she is a asthmatic and she is out of her albuterol inhaler. She states that she has been recently exposed to someone who had COVID-19 and she has not been vaccinated for Covid. She denies any recent exposure to strep pharyngitis. She currently rates her pain 8 out of 10 on the pain scale, she denies any alleviating factors. Review of Systems: Review of Systems: Complete ROS is negative unless otherwise noted in HPI. Allergies: Allergies: Allergies Coded Allergies Type Severity Reaction Last Updated Verified No Known Drug Allergies 06/22/19 No Physical Exam: PE: See Above Constitutional: Well developed, well nourished, no acute distress, non-toxic appearance, appears uncomfortable [] HENT: Normocephalic, atraumatic, bilateral external ears normal, posterior pharynx normal, tonsils 1+ bilaterally without exudate, moist mucous membranes, nose normal. [] Eyes: PERRLA, EOMI, conjunctiva normal, no discharge. [] Neck: Normal range of motion, no stridor. [] Cardiovascular:Heart rate regular rhythm Lungs & Thorax: Respirations even and unlabored, no retractions, no respiratory distress Skin: Warm, dry, no erythema, no rash. [] Extremities: No cyanosis, ROM intact, no edema. [] Neurologic: Alert and oriented X 3, normal motor, normal sensory, no focal deficits noted. [] Psychologic: Affect normal, judgement normal, mood normal. [] Current Patient Data: Vital Signs: Vital Signs Date Time Temp Pulse Resp B/P (MAP) Pulse Ox O2 Delivery O2 Flow Rate FiO2 03/29/21 14:05 98.6 98 16 110/59 (76) 98 Room Air 98.6 EKG: EKG: [] Heart Score: C/O Chest Pain: No Risk Scores: Score 0 - 3: 2.5% MACE over next 6 weeks - Discharge Home Score 4 - 6: 20.3% MACE over next 6 weeks - Admit for Clinical Observation Score 7 - 10: 72.7% MACE over next 6 weeks - Early Invasive Strategies Radiology/Procedures: Radiology/Procedures: PROCEDURE: CHEST AP ONLY EXAM: XR CHEST 1V 03/29/2021 2:52 PM CLINICAL INDICATION: Cough for 2 days agreeing sputum, Covid exposure COMPARISON: Chest radiograph 06/30/2019 TECHNIQUE: AP upright view of the chest FINDINGS: The heart and mediastinum are normal. Lungs are well-expanded and clear. No consolidation, pleural effusion, or pneumothorax. Pulmonary vascu larity is normal. The thoracic skeleton is intact. IMPRESSION: Normal chest radiograph. Electronically signed by: Christi Machado MD (03/29/2021 3:15 PM) [id number] [] Course & Med Decision Making: Course & Med Decision Making Pertinent Labs and Imaging studies reviewed. (See chart for details) [] Dragon Disclaimer: Dragon Disclaimer: This electronic medical record was generated, in whole or in part, using a voice recognition dictation system. Departure Departure Impression: Primary Impression: Person under investigation for COVID-19 Additional Impressions: Cough Acute pharyngitis Disposition: 01 HOME / SELF CARE / HOMELESS Condition: STABLE Referrals: MANUEL VELASQUEZ MD (PCP) Patient Instructions: Viral and Bacterial Pharyngitis, [id number] Additional Instructions: You have been tested for or diagnosed with COVID-19. It is an infection caused by a new type of coronavirus. COVID-19 will cause cold-like or mild flu symptoms in most. It can cause more severe symptoms like problems breathing in some. There is no treatment for COVID-19. The body will clear the infection over time. Self-care will help to ease discomfort. Steps to Take: Self-Care Rest as needed. Healthy habits may help you feel better. Steps include: Choose healthy foods including fruits and vegetables. Drink water throughout the day. Get plenty of sleep each night. If you smoke, try to quit. It may ease breathing. Avoid alcohol. Keep Others Healthy The virus can spread to others. Droplets are released every time you sneeze or cough. The droplets can get into the mouth, nose, or eyes of people near you and lead to infection. To lower the chances of spreading COVID-19 to others: Stay at home until your doctor has said it is safe to leave. If you tested positive this will mean staying isolated until both of the following are true: At least 7 days have passed since the start of illness. You are free of fever for at least 72 hours without the use of medicine. During this time: - Avoid public areas, events, or transportation. Do not return to work or school until your doctor has said it is safe to do so. - Call ahead if you need to go to a medical center. Let them know you may have COVID-19. It will help them guide you where to go. They may also ask you to wear a facemask when you come to the office. - If you call for emergency medical services, let them know you may have COVID- 19. While at home: - Try to avoid close contact with others. Stay about 6 feet away. - If possible, spend most of your time in a separate room from others. - Use a face mask if you will be in close contact with others such as sharing a room or vehicle. - Have someone wipe down common surfaces in the home. Use household detail assembler every day on areas like doorknobs, counters, or sinks. - Cough or sneeze into a tissue. Throw the tissue away right after use. If a tissue is not available, cough or sneeze into your elbow. - Wash your hands often. Wash them after sneezing or coughing. Use soap and water and wash for at least 20 seconds. Alcohol based hand shirt cleaner can be used if soap and water is not available. - Do not prepare food for others. Avoid sharing personal items like forks, spoons, or toothbrushes. - Avoid close contact with pets while you are sick. There is no evidence of the virus passing to pets. This is a safety step until more is known about this virus. Isolation can be frustrating. Social interaction can help. Keep in touch with friends and family through phone and tech options. You can still interact with others in your home, just keep a safe distance of about 6 feet. Follow-up: Your doctors office will check in with you to see if there are any changes in your health. You may be asked to keep track of symptoms to share with them. They will also let you know when you are clear to be in public again. Problems to Look Out For: Contact your doctor if your recovery is not going as you expect. Get emergency care if you have problems such as: - Trouble breathing - Nonstop chest pain or pressure - Changes in awareness, confusion, or problems waking - Lips or face have bluish color - Worsening of symptoms If you think you have an emergency, call for emergency medical services right away. As taken from [facility] Script[facility] Albuterol Sulfate (VENTOLIN HFA INHALER) 18 Gm Hfa.aer.ad 2 PUFF INH Q4HRS PRN for WHEEZING for 30 Days, #1 INHALER 0 Refills Prov: VANCE COSME APRN 03/29/21 Problem Qualifiers Additional Impressions: Acute pharyngitis Pharyngitis/tonsillitis etiology: unspecified etiology Qualified Codes: J02.9 - Acute pharyngitis, unspecified VANCE COSME THERMOSTATIC CONTROLS SUPERVISOR Mar 29, 2021 15:09
--- NOTE | 2021-03-29 15:17 | RAD ---
EXAM: XR CHEST 1V 03/29/2021 2:52 PM CLINICAL INDICATION: Cough for 2 days agreeing sputum, Covid exposure COMPARISON: Chest radiograph 06/30/2019 TECHNIQUE: AP upright view of the chest FINDINGS: The heart and mediastinum are normal. Lungs are well-expanded and clear. No consolidatio n, pleural effusion, or pneumothorax. Pulmonary vascularity is normal. The thoracic skeleton is int act. IMPRESSION: Normal chest radiograph. Electronically signed by: Christi Machado MD (03/29/2021 3:15 PM) [id number]
== END 2021-03-29 15:59 | disposition home or self-care (01) ==
LOC: ER 13:56
DX: J02.9 Acute pharyngitis, unspecified (principal); Z20.822 Contact with and (suspected) exposure to COVID-19; R05 Cough; R06.02 Shortness of breath; J45.909 Unspecified asthma, uncomplicated; F17.200 Nicotine dependence, unspecified, uncomplicated
CPT/HCPCS: 71045; 99284; U0003; U0005